=== PATIENT | female | born 1980 | race African-American/Black ===

== ENCOUNTER 2024-03-18 09:44 | Inpatient (IN) | payer BC ==
[~2024-03-18] VITALS: Ht 165.1 cm; Wt 70.3 kg
[2024-03-18 09:51] VITALS: BP 133/84; PULSE 130; RESP 20; TEMP 99; O2SAT 98
[2024-03-18] MEDS: KETOROLAC 30 MG/ML VIAL IVP ONE (10:50)
[2024-03-18] MEDS: NACL 0.9% 1,000 ML IV ONE (10:52)
[2024-03-18 11:19] LABS: MEAN CORPUSCULAR HEMOGLOBIN 20 pg (27-31); MEAN CORPUSCULAR HGB CONC 30 g/dL (33-37); PLATELET COUNT (AUTO) 21 K/uL (140-450); RED BLOOD CELL COUNT(AUTO) 1.64 MIL/uL (4.20-5.40); RED CELL DISTRIBUTION WIDTH 25.2 % (11.6-13.7)
[2024-03-18 11:21] LABS: HEMATOCRIT 10.8 % (36-48); HEMOGLOBIN 3.2 g/dL (12.0-16.0)
[2024-03-18 11:24] LABS: INR 1.11 (0.8-1.2); PROTHROMBIN TIME 11.6 secs (10.8-13.4)
[2024-03-18 11:27] LABS: PARTIAL THROMBOPLASTIN TIME 18.4 secs (22-35.6); WHITE BLOOD COUNT (AUTO) 14.6 K/uL (4.8-10.8)
[2024-03-18 11:30] LABS: ALANINE AMINOTRANSFERASE 16 U/L (12-78); ALBUMIN 3.3 g/dL (3.4-5.0); ALKALINE PHOSPHATASE 48 U/L (50-136); ASPARTATE AMINOTRANSFERASE 34 U/L (15-37); BILIRUBIN,DIRECT 0.1 mg/dL (0.0-0.3); TOTAL BILIRUBIN 0.3 mg/dL (0.0-1.0); TOTAL PROTEIN, SERUM 6.6 g/dL (6.4-8.2)
[2024-03-18 11:45] LABS: ANION GAP 10.5 (8-16); CALCIUM 8.2 mg/dL (8.5-10.1); CARBON DIOXIDE 30.8 mmol/L (21-32); CREATININE 0.8 mg/dL (0.6-1.3); POTASSIUM 3.3 mmol/L (3.5-5.1)
[2024-03-18 12:05] LABS: LYMPHOCYTES % (MANUAL) 8 % (20-46); MONOCYTES % (MANUAL) 7 % (5-12)
[2024-03-18 12:06] LABS: ANISOCYTOSIS 2+; HYPOCHROMASIA 1+; POIKILOCYTOSIS 2+; TARGET CELLS 2+; TEAR DROP CELLS 1+
[2024-03-18 12:07] LABS: OVALOCYTES 1+; STOMATOCYTES 1+
[2024-03-18] MEDS: MORPHINE SULFATE 2 MG/ML SYR IVP ONE (12:12)
[2024-03-18] MEDS: ONDANSETRON 4 MG/2 ML VIAL IVP ONE (13:52)
[2024-03-18] MEDS: MORPHINE SULFATE 4 MG/ML SYR IVP ONE (13:52)
[2024-03-18] MEDS: diphenhydrAMINE 50 MG/ML VIAL IVP ONE (14:30)
[2024-03-18] MEDS ORDERED: ONDANSETRON 4 MG/2 ML VIAL IVP PRN (14:40)
[2024-03-18] MEDS ORDERED: ZOLPIDEM 5 MG TAB PO PRN (14:40)
[2024-03-18] MEDS ORDERED: LORazepam 1 MG TAB PO PRN (14:40)
[2024-03-18] MEDS ORDERED: FERR-212 PO (15:09)
[2024-03-18] MEDS ORDERED: LEVA0.043 INH (15:09)
[2024-03-18] MEDS: PANTOPRAZOLE 40 MG INJ VIAL IVP SCH (15:49)
[2024-03-18] MEDS: IRON SUCROSE COMPLEX 100 MG/5 ML VIAL IVP SCH (16:41)
[2024-03-18 17:10] VITALS: BP 118/76; PULSE 92; PULSE 97; RESP 18; TEMP 98.1; O2SAT 100
[2024-03-18 17:30] VITALS: PULSE 92; RESP 18; O2SAT 100
[2024-03-18 17:33] VITALS: PULSE 92; RESP 18; O2SAT 100
[2024-03-18] MEDS: medroxyPROGESTERone 10 MG TAB PO SCH (18:34)
[2024-03-18] MEDS: POTASSIUM CHLORIDE 10 MEQ TABER PO PRN (18:34)
[2024-03-18] MEDS: diphenhydrAMINE 50 MG/ML VIAL IVP SCH (18:37)
[2024-03-18 20:00] VITALS: PULSE 91; RESP 16; O2SAT 98
[2024-03-18 21:01] LABS: HEMATOCRIT 19.6 % (36-48); HEMOGLOBIN 6.3 g/dL (12.0-16.0)
[2024-03-18 22:00] VITALS: BP 111/58; PULSE 91; PULSE 95; RESP 16; TEMP 98.9; O2SAT 98
[2024-03-18] MEDS: ACETAMINOPHEN 325 MG TAB PO PRN (22:46)
[2024-03-19] MEDS: diphenhydrAMINE 50 MG/ML VIAL IVP ONE (01:35)
[2024-03-19 01:36] LABS: APPEARANCE,URINE CLEAR (CLEAR); BILIRUBIN,URINE 2+ (NEGATIVE); BLOOD, URINE 3+ (NEGATIVE); COLOR,URINE YELLOW (YELLOW); LEUKOCYTE ESTERASE ,URINE NEGATIVE (NEGATIVE); NITRITE, URINE NEGATIVE (NEGATIVE); PROTEIN,URINE 1+ (NEGATIVE); UGLUCOSE NEGATIVE (NEGATIVE)
[2024-03-19 02:04] LABS: ICTOTEST POSITIVE (NEGATIVE)
[2024-03-19 02:06] LABS: BACTERIA,URINE 10-30 (MOD) /HPF (None Seen); MUCUS,URINE 1+ /LPF (None Seen); RBC,URINE TOO NUMEROUS TO COUN /HPF (0-5); SQUAMOUS EPITHELIAL CELL,UR 0-3 (FEW) /LPF (0-3 (FEW)); WBC,URINE 0-5 /HPF (0-5)
[2024-03-19] MEDS: MORPHINE SULFATE 2 MG/ML SYR IVP PRN (02:53)
[2024-03-19 04:00] VITALS: BP 113/71; PULSE 74; RESP 16; TEMP 98; O2SAT 99
[2024-03-19 05:41] LABS: BASOPHILS # (AUTO) 0.1 K/uL (0.00-0.22); BASOPHILS % (AUTO) 0.7 % (0.0-2.0); EOSINOPHILS # (AUTO) 0.1 K/uL (0-0.4); EOSINOPHILS % (AUTO) 0.5 % (0.0-4.0); HEMATOCRIT 20.4 % (36-48); LYMPHOCYTES # (AUTO) 1.2 K/uL (2.5-16.5); LYMPHOCYTES % (AUTO) 9.5 % (20.5-51.1); MEAN CORPUSCULAR HEMOGLOBIN 25 pg (27-31); MEAN CORPUSCULAR HGB CONC 33 g/dL (33-37); MONOCYTES # (AUTO) 0.6 K/uL (0.8-1.0); MONOCYTES % (AUTO) 4.6 % (1.7-9.3); NEUTROPHILS # (AUTO) 10.8 K/uL (1.8-7.7); NEUTROPHILS % (AUTO) 84.7 % (42.2-75.2); RED BLOOD CELL COUNT(AUTO) 2.64 MIL/uL (4.20-5.40); RED CELL DISTRIBUTION WIDTH 24.6 % (11.6-13.7); WHITE BLOOD COUNT (AUTO) 12.8 K/uL (4.8-10.8)
[2024-03-19 06:00] LABS: HEMOGLOBIN 6.7 g/dL (12.0-16.0); PLATELET COUNT (AUTO) 18 K/uL (140-450)
[2024-03-19 06:22] LABS: ALBUMIN 2.9 g/dL (3.4-5.0); ANION GAP 11.5 (8-16); CALCIUM 8.2 mg/dL (8.5-10.1); CARBON DIOXIDE 27.8 mmol/L (21-32); CREATININE 0.7 mg/dL (0.6-1.3); POTASSIUM 3.3 mmol/L (3.5-5.1); TOTAL BILIRUBIN 0.6 mg/dL (0.0-1.0); TOTAL PROTEIN, SERUM 5.9 g/dL (6.4-8.2)
[2024-03-19 08:00] VITALS: PULSE 72; PULSE 74; RESP 19; O2SAT 99
[2024-03-19 08:30] VITALS: BP 115/71; PULSE 72; RESP 18; TEMP 98.4; O2SAT 99
[2024-03-19] MEDS: DOCUSATE SODIUM 100 MG GELCAP PO SCH (09:31)
[2024-03-19 12:00] VITALS: BP 118/69; PULSE 76; PULSE 77; RESP 18; TEMP 98.1; O2SAT 99
[2024-03-19 16:00] VITALS: BP 129/73; PULSE 87; RESP 18; TEMP 98; O2SAT 99
[2024-03-19 20:00] VITALS: BP 134/76; PULSE 92; RESP 18; TEMP 98.1; O2SAT 98; O2SAT 99
[2024-03-20 04:00] VITALS: BP 108/60; PULSE 75; PULSE 95; RESP 16; TEMP 97.2; O2SAT 95
[2024-03-20 06:07] LABS: BASOPHILS # (AUTO) 0.1 K/uL (0.00-0.22); BASOPHILS % (AUTO) 1.1 % (0.0-2.0); EOSINOPHILS # (AUTO) 0.2 K/uL (0-0.4); LYMPHOCYTES # (AUTO) 1.1 K/uL (2.5-16.5); MEAN CORPUSCULAR HEMOGLOBIN 26 pg (27-31); MEAN CORPUSCULAR HGB CONC 33 g/dL (33-37); MEAN CORPUSCULAR VOLUME 76.8 fL (80-94); MONOCYTES # (AUTO) 0.8 K/uL (0.8-1.0); MONOCYTES % (AUTO) 7.8 % (1.7-9.3); NEUTROPHILS # (AUTO) 8.1 K/uL (1.8-7.7); NEUTROPHILS % (AUTO) 78.1 % (42.2-75.2); RED BLOOD CELL COUNT(AUTO) 2.43 MIL/uL (4.20-5.40); RED CELL DISTRIBUTION WIDTH 25.4 % (11.6-13.7); WHITE BLOOD COUNT (AUTO) 10.3 K/uL (4.8-10.8)
[2024-03-20 06:24] LABS: ALBUMIN 2.8 g/dL (3.4-5.0); ANION GAP 10.9 (8-16); CALCIUM 8.4 mg/dL (8.5-10.1); CARBON DIOXIDE 28.5 mmol/L (21-32); CREATININE 0.6 mg/dL (0.6-1.3); POTASSIUM 3.4 mmol/L (3.5-5.1); TOTAL BILIRUBIN 0.3 mg/dL (0.0-1.0)
[2024-03-20 06:41] LABS: HEMATOCRIT 18.6 % (36-48); HEMOGLOBIN 6.2 g/dL (12.0-16.0); PLATELET COUNT (AUTO) 19 K/uL (140-450)
[2024-03-20 08:00] VITALS: BP 112/68; PULSE 86; RESP 18; TEMP 98.2; O2SAT 100
[2024-03-20 16:00] VITALS: BP 125/79; PULSE 86; RESP 18; TEMP 98.5; O2SAT 100
[2024-03-20 20:00] VITALS: PULSE 77; RESP 16; O2SAT 98
[2024-03-21 04:00] VITALS: BP 117/77; PULSE 77; RESP 16; TEMP 98.3; O2SAT 98
[2024-03-21 06:00] LABS: BASOPHILS # (AUTO) 0.2 K/uL (0.00-0.22); BASOPHILS % (AUTO) 1.4 % (0.0-2.0); EOSINOPHILS # (AUTO) 0.3 K/uL (0-0.4); EOSINOPHILS % (AUTO) 2.5 % (0.0-4.0); MEAN CORPUSCULAR HEMOGLOBIN 26 pg (27-31); MEAN CORPUSCULAR HGB CONC 33 g/dL (33-37); MEAN CORPUSCULAR VOLUME 78.6 fL (80-94); MONOCYTES # (AUTO) 0.8 K/uL (0.8-1.0); MONOCYTES % (AUTO) 7.3 % (1.7-9.3); NEUTROPHILS % (AUTO) 79.8 % (42.2-75.2); PLATELET COUNT (AUTO) 37 K/uL (140-450); RED BLOOD CELL COUNT(AUTO) 2.54 MIL/uL (4.20-5.40); RED CELL DISTRIBUTION WIDTH 25.1 % (11.6-13.7); WHITE BLOOD COUNT (AUTO) 11.2 K/uL (4.8-10.8)
[2024-03-21 06:05] LABS: HEMOGLOBIN 6.5 g/dL (12.0-16.0)
[2024-03-21 06:28] LABS: ALBUMIN 2.9 g/dL (3.4-5.0); ANION GAP 9.3 (8-16); CALCIUM 8.8 mg/dL (8.5-10.1); CARBON DIOXIDE 29.3 mmol/L (21-32); CREATININE 0.7 mg/dL (0.6-1.3); POTASSIUM 3.6 mmol/L (3.5-5.1); TOTAL BILIRUBIN 0.2 mg/dL (0.0-1.0); TOTAL PROTEIN, SERUM 6.6 g/dL (6.4-8.2)
[2024-03-21] MEDS: diphenhydrAMINE 50 MG/ML VIAL IVP SCH ×2 (06:51→14:08)
[2024-03-21] MEDS: ACETAMINOPHEN EXTRA STRENGTH 500 MG TAB PO SCH ×2 (06:51→14:07)
[2024-03-21 08:00] VITALS: PULSE 76; RESP 18; O2SAT 99
[2024-03-21 12:00] VITALS: BP 99/66; PULSE 76; RESP 18; TEMP 97.6; O2SAT 99
[2024-03-21 20:00] VITALS: BP 126/54; PULSE 85; RESP 18; TEMP 98.3; O2SAT 98
[2024-03-21 21:21] VITALS: PULSE 85; RESP 18; O2SAT 98
[2024-03-22 04:00] VITALS: BP 112/74; PULSE 75; RESP 16; TEMP 97.3; O2SAT 97
[2024-03-22 06:40] LABS: BASOPHILS # (AUTO) 0.1 K/uL (0.00-0.22); BASOPHILS % (AUTO) 1.3 % (0.0-2.0); EOSINOPHILS # (AUTO) 0.3 K/uL (0-0.4); HEMATOCRIT 22.3 % (36-48); HEMOGLOBIN 7.4 g/dL (12.0-16.0); LYMPHOCYTES % (AUTO) 8.8 % (20.5-51.1); MEAN CORPUSCULAR HEMOGLOBIN 27 pg (27-31); MEAN CORPUSCULAR HGB CONC 33 g/dL (33-37); MEAN CORPUSCULAR VOLUME 81.9 fL (80-94); MONOCYTES # (AUTO) 0.8 K/uL (0.8-1.0); NEUTROPHILS % (AUTO) 79.9 % (42.2-75.2); PLATELET COUNT (AUTO) 79 K/uL (140-450); RED BLOOD CELL COUNT(AUTO) 2.72 MIL/uL (4.20-5.40); RED CELL DISTRIBUTION WIDTH 23.9 % (11.6-13.7); WHITE BLOOD COUNT (AUTO) 11.3 K/uL (4.8-10.8)
[2024-03-22 07:03] LABS: ALBUMIN 2.7 g/dL (3.4-5.0); ANION GAP 7.4 (8-16); CALCIUM 8.6 mg/dL (8.5-10.1); CARBON DIOXIDE 30.4 mmol/L (21-32); CREATININE 0.7 mg/dL (0.6-1.3); POTASSIUM 3.8 mmol/L (3.5-5.1); TOTAL BILIRUBIN 0.3 mg/dL (0.0-1.0); TOTAL PROTEIN, SERUM 6.2 g/dL (6.4-8.2)
[2024-03-22 08:00] VITALS: PULSE 88; RESP 18; O2SAT 99
[2024-03-22] MEDS ORDERED: MEDR10TA PO (11:14)
[2024-03-22] MEDS ORDERED: FERR325E14 PO (11:14)
[2024-03-22 11:45] VITALS: BP 120/80; PULSE 88; RESP 18; TEMP 97.1
[2024-03-22 12:00] VITALS: BP 120/80; PULSE 88; RESP 18; TEMP 97.1; O2SAT 99
[2024-03-25 09:07] LABS: FERRITIN 138 ng/mL (15-150)
[2024-03-25 10:44] LABS: LACTATE DEHYDROGENASE 310 IU/L (0-214)
[2024-03-28 06:09] LABS: LD1 FRACTION 17 % (17-32); LD2 FRACTION 39 % (25-40); LD4 FRACTION 8 % (5-13); LD5 FRACTION 8 % (4-20)
== END 2024-03-22 14:00 | disposition home or self-care (01) | DRG 532 ==
LOC: MED 09:44 → MTU 14:40 → MMU 17:12
PROVIDERS: ADMIT Student in an Organized Health Care Education/Training Program; ATTEND Student in an Organized Health Care Education/Training Program
PROC: 30233N1 Transfusion of Nonautologous Red Blood Cells into Peripheral Vein, Percutaneous Approach (ICD-10-PCS; principal; 2024-03-18)
DX: D25.9 Leiomyoma of uterus, unspecified (principal); D69.6 Thrombocytopenia, unspecified; R65.10 Systemic inflammatory response syndrome (SIRS) of non-infectious origin without acute organ dysfunction; E44.1 Mild protein-calorie malnutrition; D62 Acute posthemorrhagic anemia; N93.9 Abnormal uterine and vaginal bleeding, unspecified; Z68.25 Body mass index [BMI] 25.0-25.9, adult; T80.89XA Other complications following infusion, transfusion and therapeutic injection, initial encounter; Y92.238 Other place in hospital as the place of occurrence of the external cause
CPT/HCPCS: 36415; 36430; 76700; 76830; 80048; 80053; 80076; 81001; 82607; 82728; 83036; 83540; 83625; 84484; 85018; 85025; 85045; 85610; 85730; 86886; 86900; 86901; 86920; 87081; 87086; 93005; 96361; 96374; 96376; 99291; J0696; J1200; J1756; J1885; J2270; J2405; J2470; J7060; P9016; Q0092